=== PATIENT | female | born 1960 | race Caucasian/White ===

== ENCOUNTER → 2017-01-12 | Outpatient (CLI) | payer OTHER | LOC: FIMAGING 12:18 | DX: Z12.31 Encounter for screening mammogram for malignant neoplasm of breast (principal); Z85.3 Personal history of malignant neoplasm of breast; Z90.12 Acquired absence of left breast and nipple | CPT/HCPCS: G0202-52 ==

== ENCOUNTER → 2017-01-20 | Outpatient (CLI) | payer OTHER | LOC: FIMAGING 12:46 | PROVIDERS: ATTEND Internal Medicine Hematology & Oncology | DX: R92.8 Other abnormal and inconclusive findings on diagnostic imaging of breast (principal) ==

== ENCOUNTER 2018-08-04 10:28 | Emergency (ER) | payer OTHER ==
--- NOTE | 2018-08-04 11:30 | EDPHY ---
General Time Seen by Provider: 08/04/18 10:41 Narrative: CHIEF COMPLAINT: "a mosquito bit me" HISTORY OF PRESENT ILLNESS: Patient presents complaints of mosquito bite to the left elbow. She thinks this happened over the past few days. This occurred to the back side left elbow. She has then since developed some swelling, redness. No pain. No fever. No difficulty bending, straightening rotating the elbow. She has no complaints distal to the elbow. No change in activity. She is right-hand dominant. No other associated complaints or modifying factors TIME OF INJURY: Two days prior TETANUS STATUS: Up-to-date, less than 5 years ago MEDICAL/SURGICAL/SOCIAL HISTORY: Breast carcinoma, anxiety acute. The primary care doctor Randy. REVIEW OF SYSTEMS: Ten systems reviewed and are negative unless otherwise noted in the HPI EXAMINATION General Appearance: Alert, no distress Head: normocephalic, atraumatic Cardiovascular: Radial pulses symmetric 2+. There is brisk cap refill in the fingers left hand Neurological: A&O, sensory symmetric, elbow and interossei strength symmetric Skin: Warm and dry. Left olecranon bursitis without any cellulitis or evidence of abscess or septic joint. Extremities: Nontender, no pedal edema. Symmetric range of motion. There is a large left olecranon bursitis. There is no crepitus. No warmth. Full range of motion of the elbow both passive and active without pain. Neuro intact distal to the bursitis. DIFFERENTIAL DIAGNOSES: Including but not limited to traumatic bursitis, infective bursitis, septic joint, abscess MDM: 10:45 a.m. Left elbow bursitis with no signs of cellulitis, abscess or septic joint. The patient is asking that drain the bursa. I discussed the risks, benefits and alternatives. This includes regulation, introducing infection, possible septic joint from suture. She is comfortable with assuming this risk would like me to aspirate the bursa. 11:30 a.m. I aspirated the left olecranon bursal difficulty. This was closely sanguinous or serosanguineous. No purulence. This was done sterile procedure as below. I did send a fluid sample for analysis. Shoe placed on empiric antibiotic coverage pending culture. We discussed follow up with Orthopedics and her primary care physician. We discussed ED precautions for fever, warmth, difficulty bending or straightening the elbow. She is comfortable this plan and discharged home stable condition per PROCEDURE: Incision and Drainage Consent: Verbal Location: Left olecranon bursa Length: 3 x 4 cm Complexity: Simple Anesthesia: Local per 1% lidocaine without epinephrine, 5 Procedure description: After time-out and good anesthesia, the left elbow was prepped in common sterile fashion. Chlorhexidine x2. Using sterile procedure, the olecranon bursa was palpated and then aspirated with a 18 gauge needle. I was able to drain 15 mL of sanguinous and serosanguineous fluid. No purulence. Tolerated well but still dressing applied. Expressed: 15 mL Wound care: Sanguinous and serosanguineous Follow-up: Orthopedics early next week SUPERVISION: This patient was independently evaluated without direct involvement of or examination by the attending physician. ED Precautions: Worsening pain. Erythema, edema, cyanosis, pallor, paresthesia or anesthesia. - History Smoking Status: Never smoked - Objective Vital Signs: Initial Vital Signs Temperature (C) 97.7 F 08/04/18 10:30 Heart Rate 90 08/04/18 10:30 Respiratory Rate 18 08/04/18 10:30 Blood Pressure 123/82 H 08/04/18 10:30 O2 Sat (%) 95 08/04/18 10:30 O2 Delivery Mode Room Air Allergies/Adverse Reactions: No Allergies [NKDA] Allergy (Verified 08/04/18 10:29) Home Medications: Medication Instructions Recorded Cephalexin [Keflex (*)] 500 mg PO QID #40 cap 08/04/18 Prozac 20 MG (*) 08/04/18 Sulfamethox/Tmp 800/160 mg 1 tab PO BID 10 Days tab 08/04/18 [Bactrim Ds] Microbiology Results: MICROBIOLOGY 08/04/18 11:40 Elbow - Aspirate Gram Stain - Final 08/04/18 11:40 Elbow - Aspirate Anaerobic Culture - Preliminary Departure - Departure Disposition: Home, Routine, Self-Care Clinical Impression: Olecranon bursitis, left elbow Condition: Good Instructions: Elbow Bursitis (ED) Additional Instructions: 1. Antibiotics as prescribed for 7 days 2. Follow up with Orthopedics for definitive care 3. ED precautions for increasing redness, warmth, pain, difficulty bending or straightening the elbow, fever 4. You have a pending laboratory study on the fluid collected from the left elbow. We will contact you should we need to change the course of your care. Referrals: Dat Mcintyre MD [Medical Doctor] - As per Instructions Nay Queen MD [[place] Primary Care Provider] - As per Instructions Prescriptions: Cephalexin [Keflex (*)] 500 mg PO QID #40 cap Sulfamethox/Tmp 800/160 mg [Bactrim Ds] 1 tab PO BID 10 Days tab
[2018-08-04 12:06] VITALS: BP 123/69
== END 2018-08-04 12:07 | disposition home or self-care (01) ==
PROC: 0M943ZZ Drainage of Left Elbow Bursa and Ligament, Percutaneous Approach (ICD-10-PCS; principal; 2018-08-04)
DX: M70.22 Olecranon bursitis, left elbow (principal)

== ENCOUNTER → 2018-10-12 | Outpatient (CLI) | payer OTHER | LOC: FIMAGING 15:08 | PROVIDERS: ATTEND Internal Medicine Hematology & Oncology | DX: Z12.31 Encounter for screening mammogram for malignant neoplasm of breast (principal); Z85.3 Personal history of malignant neoplasm of breast; Z80.3 Family history of malignant neoplasm of breast ==